=== PATIENT | female | born 1985 | race Caucasian/White ===

== ENCOUNTER 2017-02-15 08:32 | Emergency (ER) | payer BC ==
[2017-02-15 08:41] VITALS: BP 99/65
--- NOTE | 2017-02-15 09:09 | UC ---
Eunice Villeda SooYoung, scribed for [facility] CenterTheodore MD on 02/15/17 at 0847 . Respiratory Complaint HPI - HPI Summary HPI Summary: IN ROOM NOTE: A 31 y/o F presents to [facility] with c/o ongoing throat pain. Recent dx: mono last week. Pt has a PMHx mono 9 years ago. Pt states she is unable to sleep due to pain. Associated sx: frontal JOHNSON, ear pain, jaw pain, dental pain, mild cough, low-grade fever, nasal discharge. Denies: n/v/d. Pt is taking IBP. NOTE: Vital signs stable. Afebrile. Pulse ox 100. Non-smoker, occasional EToH. Hx: anxiety. Positive mono screening 02/10/2017. Negative influenza on 02/06/17. NURSE'S NOTE: last week pt was dx with mono. she presents today with c/o sinus pain and pressure and is sure she has a sinus infection. - History of Current Complaint Chief Complaint: UCRespiratory Stated Complaint: SINUS ISSUE Time Seen by Provider: 02/15/17 08:35 Hx Obtained From: Patient, Medical Records Hx Last Menstrual Period: 01/31/17 Onset/Duration: Lasting Days, Still Present Severity Initially: Moderate Severity Currently: Severe Pain Intensity: 9 Pain Scale Used: 0-10 Numeric Associated Signs And Symptoms: Positive: Fever - low-grade, Nasal Congestion, Sinus Discomfort - Allergies/Home Medications Allergies/Adverse Reactions: Allergies Allergy/AdvReac Type Severity Reaction Status Date / Time Amantadine Allergy See Comment Verified 02/15/17 08:41 Phenazopyridine Allergy See Comment Verified 02/15/17 08:41 [From Pyridium] Home Medications: Home Medications Escitalopram Oxalate [Lexapro] 20 mg PO 02/15/17 [History] Ferrous Sulfate [Fe Tabs] 325 mg PO 02/15/17 [History] PMH/Surg Hx/FS Hx/Imm Hx Previously Healthy: Yes Psychological History Of: Reports: Anxiety - Surgical History Surgical History: None - Family History Known Family History: Positive: Unknown - DUE TO ALZHEIMERS IN MOTHER, Hypertension - Social History Occupation: Employed Full-time Lives: With Family Alcohol Use: Occasionally Substance Use Type: None Smoking Status (MU): Never Smoked Tobacco Have You Smoked in the Last Year: No Review of Systems Constitutional: Fever ENT: Dental Pain - and jaw pain, Sore Throat, Ear Ache, Nasal Discharge Respiratory: Cough - and congestion Neurological: Headache All Other Systems Reviewed And Are Negative: Yes Physical Exam Triage Information Reviewed: Yes Appearance: Well-Appearing, Well-Nourished, Pain Distress - OBVIOUS DISTRESS DUE TO THROAT PAIN, CONGESTION Vital Signs: Initial Vital Signs Temp 97.9 F 02/15/17 08:38 Pulse 79 02/15/17 08:38 Resp 18 02/15/17 08:38 BP 99/65 02/15/17 08:38 Pulse Ox 100 02/15/17 08:38 Vital Signs Reviewed: Yes Eyes: Positive: Conjunctiva Clear ENT: Positive: Hearing grossly normal, Pharynx normal, TMs normal, Tonsillar swelling - POS: 2 ENLARGED TONSILS, NOT ERYTHEMATOUS. THROAT OPEN, TONSILS DO NOT TOUCH UVULA., Other: - POS: MILD TENDERNESS TO PALPATION OF MAXILLARY SINUSES. Negative: Muffled/hoarse voice Neck: Positive: Supple, Other: - POS: ANTERIOR ADENOPATHY Respiratory: Positive: Chest non-tender, Lungs clear, Normal breath sounds, No respiratory distress Cardiovascular: Positive: RRR, No Murmur Abdomen Description: Positive: Nontender, No Organomegaly, Soft Bowel Sounds: Positive: Present Musculoskeletal: Positive: Strength Intact, Other: - BURCH Neurological: Positive: Alert Psychological: Positive: Age Appropriate Behavior Skin: Negative: rashes UC Diagnostic Evaluation - Laboratory O2 Sat by Pulse Oximetry: 100 Respiratory Course/Dx - Course Course Of Treatment: Medications have been included in the original chart and reviewed. Normal BP reading and no follow-up instructions required. On respiratory exam, no respiratory distress, no difficulty swallowing saliva. Discussed with pt strategies for pain relief including warm fluids, steam, viscous lidocaine, APAP/IBP. - Differential Dx/Diagnosis Differential Diagnosis/HQI/PQRI: Other - MONO vs URI vs SINUSITIS Provider Diagnoses: 1. MONONUCLEOSIS. 2. SINUSITIS Discharge - Discharge Plan Condition: Stable Disposition: HOME Prescriptions: Amoxicillin (*) [Amoxicillin 875 MG (*)] 875 mg PO BID #14 tab Patient Education Materials: Mononucleosis (ED), Sinusitis (ED) Referrals: Ze La, ACETY[employer]E [employer]ORCH SOLDERER [Primary Care Provider] - Additional Instructions: WE DISCUSSED: You have: 1. mononucleosis 2. sinusitis: take amoxicillin, twice a day for 7 days. 3. also: PAIN MANAGEMENT Most pain can be brought down to a reasonable level with the following: Ibuprofen 400mg PLUS acetaminophen 1000mg, every 6 hours. Maximum is 4 doses a day. As well as: USEFUL WAYS TO FEEL BETTER WITHOUT MEDICATIONS: STAND UNDER SHOWER STREAM TO LOOSEN SECRETIONS. USE A VAPORIZOR. STAY AWAY FROM ANY SMOKE OR IRRITANTS. USE SALINE NASAL SPRAY TO KEEP FLOW OF MUCOUS FROM NOSTRILS AND SINUSES. CONSIDER USING NETI POT TO HELP WITH ALLERGIES AND CONGESTION IN THE NOSE. USE THIS THREE TIMES A WEEK. YOU CAN GET THIS AT [facility] IN [place] OR VARIOUS DRUGSTORES. DRINK LOTS OF WARM FLUIDS USEFUL HOME REMEDIES: WARM WATER GARGLES, WITH TSP OF SALT PER 8 OUNCES OF WATER, GARGLE FOR A FEW SECONDS AND SPIT OUT; GARGLE AND SPIT OUT; EVERY THREE HOURS. AND/OR: WARM WATER OR TEA, HONEY AND LEMON; 2-3 CUPS A DAY. FOR SORE THROAT: KEEP THROAT MOIST WITH LOZENGES; TEA AND HONEY. USE WARM WATER GARGLES 3-4 TIMES A DAY. FOLLOW UP: RE-CHECK IN 1O DAYS, NEEDED, IF YOU ARE NOT IMPROVING. RETURN HERE OR SEE YOUR PHYSICIAN. RE-CHECK SOONER IF INCREASED PAIN OR TEMPERATURE. The documentation as recorded by the Eunice hamilton SooYoung accurately reflects the service I personally performed and the decisions made by me, Theodore Espinoza MD.
== END 2017-02-15 09:23 | disposition home or self-care (01) ==
LOC: UCEAST 08:32
DX: B27.90 Infectious mononucleosis, unspecified without complication (principal); J32.9 Chronic sinusitis, unspecified; F41.9 Anxiety disorder, unspecified
CPT/HCPCS: 99212; G0463

== ENCOUNTER 2018-06-08 07:03 | Day surgery (SDC) | payer BC ==
--- NOTE | 2018-06-02 11:08 | HP ---
PREOPERATIVE HISTORY AND PHYSICAL: DATE OF SURGERY/ADMISSION: 06/08/18 [facility] DATE OF OFFICE VISIT/ENCOUNTER: 05/13/18 ATTENDING SURGEON: Nunu Bolaños MD * (DICTATED BY MEAGAN CINTRON) PROCEDURE: De Quervain's release, ganglion cyst excision, right wrist. CHIEF COMPLAINT: Right wrist pain. HISTORY OF PRESENT ILLNESS: This is a 32-year-old female who reports pain in her right wrist most recently. It has been ongoing for the past 3 to 4 months. She has a history of de Quervain's tenosynovitis that she first noticed towards the end of 2015 and ended up having a de Quervain's release performed by a doctor in [place] in June 2017. Unfortunately, she had some pain return that has persisted. She denies any injury to the wrist. She has failed conservative treatment including brace and physical therapy. MRI imaging shows evidence of tendinitis and also a ganglion cyst present in the area of the pain. She has consented to proceed with surgical intervention at this time. PAST MEDICAL HISTORY: 1. Anxiety/depression. 2. Anemia. 3. Allergies. PAST SURGICAL HISTORY: Right wrist de Quervain's release, June 2017. CURRENT MEDICATIONS: 1. Vitamin B12. 2. Vitamin D3. 3. Lexapro 20 mg daily. 4. Ferrous sulfate 325 mg daily. 5. Hydrocortisone 2.5%, apply 4 times per day p.r.n. 6. Hydroxyzine HCl 25 mg 1/2 to 1 tablet every 6 to 8 hours p.r.n. 7. Mirena 20 mcg/24 hours. 8. Olopatadine HCl 0.1% one drop in eyes twice a day. 9. QNASL 80 mcg/ACT, 2 sprays each nostril 1 time daily. ALLERGIES: Medication allergies: PYRIDIUM causes throat swelling and AMANTADINE causes confusion. FAMILY MEDICAL HISTORY: Osteoarthritis. 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 She denies tobacco use and recreational drug use. She does drink alcohol on occasion. REVIEW OF SYSTEMS: General: Negative for fevers, chills, night sweats, unexplained weight loss/gain. No known anesthesia problems. HEENT: Negative for headache, lightheadedness, syncopal episodes, or visual changes. Integumentary: Negative for abrasions, lesions, or open wounds. Cardiothoracic : Negative for hypertension, chest pain, palpitations, or edema. Respiratory: Negative for shortness of breath with exertion, chronic cough, or wheezing. GI: Negative for nausea, vomiting, diarrhea, constipation, or GERD. : Negative for nocturia, urinary frequency/urgency, history of UTIs, or kidney problems. Musculoskeletal: Positive for current complaint. Negative for chronic or intermittent back pain or history of fractures. Neurological: Negative for paresthesias, numbness, history of seizure, stroke, poor balance. Positive for anxiety/depression. Endocrine: Negative for diabetes and thyroid issues. Hematologic: Negative for easy bruising, anemia, bleeding disorders, history of DVT. Infectious Disease: Negative for history of MRSA, hepatitis C , or HIV. PHYSICAL EXAMINATION GENERAL: Well-developed, well-nourished 32-year-old female in no acute distress. VITAL SIGNS: Height 5 feet 5 inches, weight 111 pounds. Pulse rate 78, blood pressure 90/60. HEENT: Normocephalic, atraumatic. Pupils are equal, round, and reactive to light and accommodation. Extraocular movements are intact. Throat is clear. NECK: Supple. No palpable lymph nodes. PULMONARY: Lungs are clear to auscultation bilaterally. No wheezes, rales, or rhonchi. CARDIOVASCULAR: Regular rate and rhythm. S1, S2. No murmurs, rubs, or gallops. No edema. ABDOMEN: Positive bowel sounds. Soft, nontender. MUSCULOSKELETAL: On exam of her right wrist, she has a well-healed transverse incision at the first dorsal compartment. She has tenderness to palpation just under the surgical scar and also on the volar radial aspect of the wrist. She has a mildly positive Luis Miguel's test. Neurovascular function is intact. NEUROLOGIC: Alert and oriented x3. Cranial nerves II through XII are intact. Sensation is intact to light touch. IMAGING STUDIES: X-rays of the right wrist are unremarkable. MRI of the right wrist shows some inflammation around the tendons of the first dorsal compartment and a volar radial ganglion cyst. IMPRESSION: Persistent wrist pain after de Quervain's release and a right wrist ganglion cyst. PLAN: The patient is scheduled to undergo a de Quervain's release and a ganglion cyst excision of the right wrist with Dr. Bolaños on 06/08/18. She will return to the office 10 days postop for followup and suture removal. A prescription for Tylenol No. 3 was e-scribed to the patient's pharmacy for postoperative pain management. MEAGAN CINTRON [id number]/[facility] #: [id number] [place]
[~2018-06-08 07:03] MED LIST: Buffered Lidocaine 0.9% SYRIN* 5 ML/SYR SYRINGE INTRADERM ONE; Lidocaine 0.5%* 50 ML SDV ONE; Propofol* 10 MG/ML 20 ML BTL IV PUSH ONE
[2018-06-08] MEDS ORDERED: Lidocaine 1% INJ* 10 MG/ML 30 ML SDV ONE (07:11)
[2018-06-08] MEDS ORDERED: Acetaminophen TAB* 325 MG PO PRN (08:39)
[2018-06-08] MEDS ORDERED: Ibuprofen TAB* 600 MG PO PRN (08:39)
[2018-06-08] MEDS ORDERED: Naloxone* 0.4 MG/ML 1 ML VIAL IV PRN (08:39)
[2018-06-08] MEDS ORDERED: Ondansetron ODT TAB* 4 MG PO PRN (08:39)
[2018-06-08 09:12] VITALS: BP 92/53
--- NOTE | 2018-06-08 21:36 | OP ---
DATE OF OPERATION: 06/08/18 [facility] DATE OF : 83 SURGEON: Nunu Bolaños MD MANAGER STRATEGIC ALLIANCES: MEAGAN Valdez ANESTHESIA: Local MAC. PRE-OP DIAGNOSES: De Quervain's tenosynovitis and ganglion cyst of the right wrist. POST-OP DIAGNOSES: De Quervain's tenosynovitis and ganglion cyst of the right wrist. OPERATIVE PROCEDURE: Redo de Quervain' s release and ganglion cyst excision from the right wrist. ESTIMATED BLOOD LOSS: Zero. TOURNIQUET TIME: 25 minutes. INDICATIONS FOR PROCEDURE: Ines is a 32-year-old female who had a de Quervain 's release and initially got very good relief but now has recurrent symptoms and on MRI, she has a ganglion cyst at the volar radial aspect of her wrist, which is bothersome. She presents for redo de Quervain's release and ganglion cyst excision. DESCRIPTION OF PROCEDURE: The patient was brought to the operating room, was given a sedation anesthetic and a local infiltration of 10 cc of 1% plain lidocaine. On the radial aspect of her right wrist, the skin of her right hand and forearm was prepped and draped in usual sterile fashion. The hand and forearm were exsanguinated and the tourniquet elevated to 250 mmHg. The prior scar was incised transverse and carefully dissected through the subcutaneous tissue, branches of the radial sensory nerve were located and retracted by the assistant professor surgical technology, Shania Moreno. There was abundant scar tissue surrounding the first compartment tendons and this was thoroughly debrided. Next, the incision was extended volar and distal diagonally over the ganglion cyst. The radial artery was carefully dissected out and retracted by the assistant professor surgical technology, Shania Moreno, and then the ganglion cyst was removed with small portions of volar radial wrist capsule. The edges of the capsule were cauterized with Bovie. The mass was sent for pathology. The wound was irrigated and the skin edges were reapproximated with 4-0 nylon suture. The wound was dressed with Xeroform, 4x4, Webril, and an Fadi wrap. The patient tolerated the procedure well, was brought to the recovery room in good condition. [id number]/[facility] #: [id number] [facility]
== END 2018-06-08 09:34 | disposition home or self-care (01) ==
LOC: OREAST 07:03
PROVIDERS: ATTEND Orthopaedic Surgery
DX: M65.4 Radial styloid tenosynovitis [de Quervain] (principal); M67.431 Ganglion, right wrist; D64.9 Anemia, unspecified; F41.9 Anxiety disorder, unspecified
CPT/HCPCS: 81025; 88304; J2704

== ENCOUNTER 2018-06-19 15:42 | Emergency (ER) | payer BC ==
--- OUTSIDE RECORDS SUMMARY | 2018-06-19 16:06 | XMS REPORT ---
:1985 External Reference #:[id number] Author Organization Buddy Biswas M.D., [facility] Address [address] [place] [address] Phone [phone] Care Team Providers Name Role Phone Ze La NP Care Team Information Energy Conservation Engineer Unavailable Ze La NP Primary Care Physician Unavailable Payers Type Date Identification Numbers Payment Provider Subscriber Health Maintenance Effective: Policy Number: [employer] Ines Malhotra Organization (O) 11/02/2013 [id number] PayID: [id number] [address] [place] [address] Problems Date Description Provider Status Onset: 08/25/2014 Regular astigmatism Aravind Sanches O.D. Active Onset: 08/25/2014 Myopia Aravind Sanches O.D. Active Onset: 08/25/2014 Tear film insufficiency Aravind Sanches O.D. Active Family History Date Family Member(s) Problem(s) Comments General Age-Related Macular Degeneration mgm General Blindness General Cataract General Glasses General Glaucoma pgm General Arthritis General Diabetes General Thyroid Disease Father Cataract Father Glasses Father Diabetes Mother Glasses Social History Type Date Description Comments ETOH Use Occasionally consumes alcohol Smoking Patient has never smoked Allergies, Adverse Reactions, Alerts Date Description Reaction Status Severity Comments 08/25/2014 Pyridium active Medications Medication Date Status Form Strength Qnty SIG Indications Ordering Provider Olopatadine HCL 03/16 Active Solution 0.1% 5ml one drop twice a Caro, day both OD eyes Pataday 00 Active Solution 0.2% Unknown /0000 Lexapro 00 Active Tablets 20mg Unknown /0000 Mirena (52 MG) 00 Active IUD 20mcg/24H Unknown /0000 R Sulfamethoxazole/ Active Tablets 800-160mg Unknown Trimethoprim DS /0000 Desloratadine Active Tablets 5mg Take 1 Unknown /0000 Tablet By Mouth Every Morning Fluconazole Active Tablets 150mg Take 1 Unknown /0000 Tablet By Mouth Every 3 Days For 2 Doses Levocetirizine Active Tablets 5mg Take 1 Unknown Dihydrochloride /0000 Tablet By Mouth Every Day as Needed Acetaminophen-Cod Active Tablets 300-30mg Unknown eine #3 Tramadol Active Tablets 37.5-325m Unknown Hydrochloride/Fadi / g taminophen Qnasl Active Aerosol 80mcg/Act [place] 2 Unknown Sprays Into Each Nostril One Time Daily Levofloxacin Active Tablets 500mg Bessie, / Ze, STUD DRIVER Amoxicillin/Clavu Active Tablets 875-125mg Unknown lanate Potassium Anucort-HC Active Suppository 25mg Insert 1 Unknown Suppositor y Rectally Two Times Daily Gavilyte-C Active Solution 240gm Take By Unknown Rec Mouth as Directed Methylprednisolon Active TBPK 4mg Mert, e MD Oscar Prednisone Active Tablets 10mg Mert, MD Oscar Olopatadine HCL 03/31 Hx Solution 0.1% 5ml one drop H10.45 twice a Caro, - day both OD 03/16 Ortho Tri-Cyclen Hx Tablets 0.18/0.21 Unknown Lo 5/0.25 - mg-25 mcg 03/31 Tri-Previfem Hx Tablets 0.18/0.21 Unknown 5/0.25 - mg-35 mcg 03/31 Vital Signs Date Vital Result Comment 03/31/2017 Intraocular Pressure Right Eye 13 mmHg Intraocular Pressure Left Eye 13 mmHg 08/25/2014 Intraocular Pressure Right Eye 11 mmHg Intraocular Pressure Left Eye 11 mmHg Results Description No Information Procedures Date CPT Code Description Status 03/31/2017 32767 Eye Exam Est Intermediate Completed 08/25/2014 34548 Refraction Completed 08/25/2014 82947 Eye Exam New Comprehensive Completed Plan of Care No Information Available
--- OUTSIDE RECORDS SUMMARY | 2018-06-19 16:06 | XMS REPORT ---
:1985 External Reference #:[id number] Author Organization [employer] Address [address] [place] [address] [place] [address] Phone [phone] Care Team Providers Name Role Phone Moriah Olivas MD Primary Care Physician Unavailable Payers Type Date Identification Numbers Payment Provider Subscriber Commercial Policy Number: [id number] [facility] Gee Malhotra PayID: [id number] [address] [place] [address] Advance Directives Type Date Description Status Comment Other Directive 11/28/2017 Health Care Proxy Current and Verified Other Directive 07/19/2017 Health Care Proxy Current and Verified Problems Date Description Provider Status Onset: 10/11/2015 Anxiety Ze La NP Active Family History Date Family Member(s) Problem(s) Comments General Arthritis, Osteo General Osteoarthritis General Arthritis Father Diabetes Type II Father Hypercholesterolemia 66 Mother Alzheimer's Disease Mother Obesity 63 Social History Type Date Description Comments Marital Status Single 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 hours as needed for pain Olopatadine HCL 04/19 Active Solution 0.1% 5ml 1 drop in eyes twice Varn, N.P. a day B12 Fast 02/03 Active Tablets 5000mcg 90tab sublingual Kirit Dispers s daily Jen Sahu D3 Maximum 12/29 Active Capsules 5000Unit 90cap take one s capsule/ta cecilia Sahu daily M.D. by mouth Ferrous Sulfate 10/19 Active Tablets 325(65Fe) take 1 mg tablet once daily. Hydroxyzine HCL 05/12 Active Tablets 25mg 15tab 11/03-1 F41.9 Ze s tablets by NITIN La mouth every 6-8 hours as needed Hydrocortisone 02/18 Active Cream 2.5% 45gm apply 4 K64.9 Erin /2016 times per , day as M.D. needed. Escitalopram 12/07 Active Tablets 20mg 30tab 1 by mouth F41.9 Ze Oxalate s every day NITIN La Mirena Active IUD 20mcg/24H R Qnasl Active Aerosol 80mcg/Act [place] 2 Sprays Into Each Nostril One Time Daily Levofloxacin 01/11 Hx Tablets 500mg 7tabs one by J01.90 Ze mouth NITIN La - daily for 01/18 Fluconazole 11/12 Hx Tablets 150mg 2tabs one by B37.3 mouth Varn, N.P. - every 3 04/25 days for doses Fluconazole 05/12 Hx Tablets 150mg 2tabs one by B37.3 Ze mouth NITIN La - every 3 08/25 days for doses Ferrous Sulfate 02/10 Hx Tablets 325(65Fe) 30tab take 1 Ze /2016 mg s tablet NITIN La - once 08/25 daily. Penicillin V 02/06 Hx Tablets 500mg 20tab 1 tablet Ze Potassium s by mouth NITIN La - twice a 02/16 day for days Amoxicillin/Cla 11/19 Hx Tablets 875-125mg 20tab take one J06.9 Ze vulanate s tablet q12 NITIN La Potassium - hours for 11/27 Fluticasone 07/22 Hx Suspension 50mcg/Act 16uni 2 sprays J01.00 Alba Propionate ts each Varn, N.P. - nostril 08/05 daily as needed Augmentin 07/22 Hx Tablets 875-125mg 20tab one by J01.00 Alba s mouth Varn, N.P. - every 12 11/19 hours for ten days Fluconazole 07/22 Hx Tablets 150mg 3tabs one by J01.00 Alba /2016 mouth Varn, N.P. - every 3 02/05 days for doses Fluconazole 05/06 Hx Tablets 150mg 2tabs one by Ze mouth march NITIN La - repeat in 05/08 3 days as needed Anucort-HC 02/18 Hx Suppository 25mg [address] K64.9 ts of rectum Cote, - every 8 M.D. 20 hours as needed. Anucort-HC 02/18 Hx Suppository 25mg [address]uni [address] Luis Fernando64.9 ts of rectum Rocael, - every 8 M.D. 20 hours as needed. Fluconazole 02/14 Hx Tablets 150mg 2tabs one by B37.3 Ze mouth march NITIN La - repeat in 02/18 3 days as needed Diflucan 11/06 Hx Tablets 150mg 2tabs 1 tab by Alex mouth x's NITIN Pham - 1, march 02 repeat 3 days Fluticasone 10/19 Hx Suspension 50mcg/Act 16uni 2 sprays H92.01 Ze Propionate ts each NITIN La - nostril 07/22 qd. Pataday 10/11 Hx Solution 0.2% 2.500 1 drop Ze /2014 ml into each NITIN La - affected 04/19 eye once daily Ciprofloxacin 09/18 Hx Tablets 250mg 14tab take one N39.0 Ze HCL s tablet NITIN La - twice a 09/25 day for days. Hydroxyzine 08/23 Hx Capsules 25mg 30cap 1-2 caps F41.9 Ze Pamoate s by mouth NITIN La - four times 05/12 a day needed for anxiety Escitalopram 08/23 Hx Tablets 10mg 30tab 2 tablets F41.9 Ze s daily NITIN La - 12/07 Cetirizine HCL 00 Hx Tablets 10mg 2 by mouth Unknown /0000 every day - 04/19 Medications Administered in Office Medication Date Status Form Strength Qnty SIG Indications Ordering Provider PPD Administered Injection Nurse Visit 6 A Immunizations CPT Code Status Date Vaccine Lot # [id number] Given 11/09/2017 Tdap - Tetanus/Diptheria/Acellular Pertussis [id number] Given 08/25/2017 Influenza Virus Vaccine, Quadrivalent, Split, [id number] Preservative Free Vital Signs Date Vital Result Comment 06/17/2018 Height 65 inches 5'5" Weight 113.00 lb Heart Rate 60 /min BP Systolic Sitting 116 mmHg BP Diastolic Sitting 60 mmHg Body Temperature 98.5 F Pain Level 2 BMI (Body Mass Index) 18.8 kg/m2 05/13/2018 Heart Rate 78 /min BP Systolic 90 mmHg BP Diastolic 60 mmHg Respiratory Rate 16 /min Body Temperature 97.6 F Pain Level 4 04/19/2018 Weight 111.00 lb Heart Rate 77 /min BP Systolic 100 mmHg BP Diastolic 60 mmHg Body Temperature 99.0 F O2 % BldC Oximetry 98 % 04/07/2018 Height 65 inches 5'5" Weight 112.00 lb Heart Rate 70 /min BP Systolic 110 mmHg BP Diastolic 68 mmHg Respiratory Rate 12 /min Body Temperature 96.8 F Pain Level 5 BMI (Body Mass Index) 18.6 kg/m2 03/17/2018 Height 65 inches 5'5" Weight 110.00 lb BP Systolic 110 mmHg BP Diastolic 62 mmHg Respiratory Rate 15 /min Body Temperature 96.7 F Pain Level 4 BMI (Body Mass Index) 18.3 kg/m2 02/03/2018 Height 65 inches 5'5" Weight 109.00 lb Heart Rate 80 /min BP Systolic Sitting 100 mmHg BP Diastolic Sitting 70 mmHg Respiratory Rate 14 /min Pain Level 3 BMI (Body Mass Index) 18.1 kg/m2 01/11/2018 Weight 111.75 lb Heart Rate 79 /min BP Systolic 96 mmHg BP Diastolic 62 mmHg Body Temperature 97.7 F O2 % BldC Oximetry 99 % 12/21/2017 Height 65 inches 5'5" Weight 108.25 lb Heart Rate 80 /min BP Systolic Sitting 110 mmHg BP Diastolic Sitting 72 mmHg Respiratory Rate 14 /min Pain Level 5 BMI (Body Mass Index) 18.0 kg/m2 11/09/2017 Height 65 inches 5'5" Weight 110.38 lb Heart Rate 70 /min BP Systolic Sitting 92 mmHg BP Diastolic Sitting 60 mmHg Respiratory Rate 14 /min Body Temperature 96.9 F BMI (Body Mass Index) 18.4 kg/m2 10/08/2017 Height 65 inches 5'5" Weight 114.12 lb Heart Rate 84 /min BP Systolic Sitting 100 mmHg BP Diastolic Sitting 66 mmHg Respiratory Rate 14 /min Body Temperature 97.9 F BMI (Body Mass Index) 19.0 kg/m2 10/05/2017 Height 65 inches 5'5" Weight 114.00 lb Heart Rate 85 /min BP Systolic Sitting 102 mmHg BP Diastolic Sitting 76 mmHg Body Temperature 97.5 F O2 % BldC Oximetry 98 % BMI (Body Mass Index) 19.0 kg/m2 08/25/2017 Weight 115.00 lb Heart Rate 84 /min BP Systolic Sitting 108 mmHg BP Diastolic Sitting 70 mmHg Body Temperature 97.9 F O2 % BldC Oximetry 97 % 07/31/2017 Weight 112.75 lb Heart Rate 93 /min BP Systolic 112 mmHg BP Diastolic 74 mmHg Body Temperature 98.4 F O2 % BldC Oximetry 97 % 07/17/2017 Height 65 inches 5'5" Weight 112.00 lb Heart Rate 76 /min BP Systolic 90 mmHg BP Diastolic 40 mmHg Body Temperature 98.5 F O2 % BldC Oximetry 99 % BMI (Body Mass Index) 18.6 kg/m2 05/12/2017 Weight 111.00 lb Heart Rate 76 /min BP Systolic Sitting 114 mmHg BP Diastolic Sitting 76 mmHg O2 % BldC Oximetry 98 % 04/09/2017 Weight 110.00 lb Heart Rate 89 /min BP Systolic Sitting 108 mmHg BP Diastolic Sitting 72 mmHg Body Temperature 98.5 F O2 % BldC Oximetry 98 % 02/25/2017 Weight 108.50 lb Heart Rate 87 /min BP Systolic 102 mmHg BP Diastolic 64 mmHg Body Temperature 98.2 F O2 % BldC Oximetry 98 % 02/05/2017 Height 65 inches 5'5" Weight 109.00 lb Heart Rate 100 /min BP Systolic Sitting 100 mmHg BP Diastolic Sitting 70 mmHg Respiratory Rate 16 /min Body Temperature 98.6 F O2 % BldC Oximetry 99 % BMI (Body Mass Index) 18.1 kg/m2 11/19/2016 Weight 115.00 lb with boots Heart Rate 88 /min BP Systolic Sitting 108 mmHg BP Diastolic Sitting 80 mmHg Body Temperature 97.3 F O2 % BldC Oximetry 99 % 07/22/2016 Height 64.5 inches 5'4.50" Weight 115.00 lb Heart Rate 82 /min BP Systolic 97 mmHg BP Diastolic 65 mmHg Body Temperature 98.6 F O2 % BldC Oximetry 97 % BMI (Body Mass Index) 19.4 kg/m2 02/19/2016 Weight 115.00 lb Heart Rate 88 /min BP Systolic Sitting 112 mmHg BP Diastolic Sitting 68 mmHg O2 % BldC Oximetry 97 % 02/15/2016 Weight 115.00 lb Heart Rate 78 /min BP Systolic Sitting 122 mmHg BP Diastolic Sitting 70 mmHg Respiratory Rate 15 /min Body Temperature 97.6 F O2 % BldC Oximetry 98 % 12/07/2015 Weight 118.25 lb Heart Rate 79 /min BP Systolic Sitting 113 mmHg BP Diastolic Sitting 71 mmHg Body Temperature 98.9 F O2 % BldC Oximetry 99 % 11/05/2015 Height 64.5 inches 5'4.50" Weight 122.25 lb Heart Rate 93 /min BP Systolic Sitting 106 mmHg BP Diastolic Sitting 62 mmHg Body Temperature 96.4 F O2 % BldC Oximetry 99 % BMI (Body Mass Index) 20.7 kg/m2 10/19/2015 Weight 122.25 lb Heart Rate 77 /min BP Systolic Sitting 105 mmHg BP Diastolic Sitting 69 mmHg Body Temperature 97.5 F O2 % BldC Oximetry 99 % 09/18/2015 Weight 123.50 lb Heart Rate 74 /min BP Systolic Sitting 107 mmHg BP Diastolic Sitting 65 mmHg Body Temperature 97.9 F O2 % BldC Oximetry 98 % 08/23/2015 Height 64.5 inches 5'4.50" Weight 124.00 lb Heart Rate 70 /min BP Systolic Sitting 100 mmHg BP Diastolic Sitting 60 mmHg Respiratory Rate 13 /min Body Temperature 98.0 F O2 % BldC Oximetry 98 % BMI (Body Mass Index) 21.0 kg/m2 Results Test Date Test Result H/L Range Note Laboratory test 06/08/2018 Surgical Pathology SEE RESULT BELOW 1, 2 finding CBC Auto Diff 12/21/2017 White Blood Count 4.8 10^3/uL 3.5-10.8 Red Blood Count 4.24 10^6/uL 4.0-5.4 Hemoglobin 12.8 g/dL 12.0-16.0 Hematocrit 38 % 35-47 Mean Corpuscular Volume 89 fL 80-97 Mean Corpuscular Hemoglobin 30 pg 27-31 Mean Corpuscular HGB Conc 34 g/dL 31-36 Red Cell Distribution Width 14 % 10.5-15 Platelet Count 236 10^3/uL 150-450 Mean Platelet Volume 9 um3 7.4-10.4 Abs Neutrophils 2.4 10^3/uL 1.5-7.7 Abs Lymphocytes 1.8 10^3/uL 1.0-4.8 Abs Monocytes 0.3 10^3/uL 0-0.8 Abs Eosinophils 0.2 10^3/uL 0-0.6 Abs Basophils 0 10^3/uL 0-0.2 Abs Nucleated RBC 0 10^3/uL Granulocyte % 50.0 % 38-83 Lymphocyte % 37.9 % 25-47 Monocyte % 7.2 % 1-9 Eosinophil % 4.3 % 0-6 Basophil % 0.6 % 0-2 Nucleated Red Blood Cells % 0.1 Hepatitis Acute Panel 12/21/2017 Hepatitis C Antibody Nonreactive Nonreactive 3 Hepatitis A AB Igm Nonreactive Nonreactive 4 Hepatitis B Core AB Igm Nonreactive Nonreactive 5 Hepatitis B Surface Ag Nonreactive Nonreactive 6 Laboratory test finding 12/21/2017 Erythrocyte Sed Rate 11 mm/Hr 0-14 7 C Reactive Protein < 1.00 mg/L < 5.00 8 Thyroperoxidase AB 0.53 IU/mL <9 9 Ach Receptor Binding AB 0.00 nmol/L <=0.02 10 Aldolase 4.2 U/L <7.7 11 Anca AB Ser If 12/21/2017 C-Anca Negative Negative P-Anca Negative Negative 12 Laboratory test finding 12/21/2017 Creatine Kinase(CK) 71 U/L 10-223 13 Cardiolipin Igg/Igm 12/21/2017 Phospholipid Ab IgM, S 39.5 MPL High 14 Phospholipid Ab IgG < 9.4 GPL 15 Laboratory test finding 12/21/2017 Complement C3 88 mg/dL 75 - 175 16 Complement C4 16 mg/dL 14 - 40 17 Anti Double Stranded Dna AB <12.3 IU/mL 18 Vitamin D 1,25 And Vitamin 12/21/2017 Vitamin D Total 25(Oh) 19.4 ng/mL Low 20-50 19 D,2 Vitamin D, 1,25 Dihydroxy 99 pg/mL 18-78 20 Vitamin B12 And Folate Serum 12/21/2017 Vitamin B12 335 pg/mL 180-914 21 Folic Acid (Folate) 15.65 ng/mL >3.99 22 Laboratory test finding 12/21/2017 Angiotensin Converting Enzyme 22 U/L 8 - 53 23 Devi Igg AB Reflex 12/21/2017 SS-A/Ro Antibody <0.2 U 24 SS-B/La Antibody <0.2 U 25 Sm ([place]) IgG Antibody <0.2 U 26 U1-nRNP Antibody <0.2 U 27 Scl-70 (Scleroderma) Antibody <0.2 U 28 Belia-1 Antibody <0.2 U 29 Laboratory test finding 12/16/2017 Surgical Pathology SEE RESULT BELOW 30, 31 Nuclear AB (Darian) By Ifa 11/19/2017 Nuclear Ab (Darian) by Positive 1:160 32 Igg Ifa, IgG Darian Titer: 1:160 Darian Pattern: Dense Fine Speck <SEE NOTE> 33 Laboratory test finding 10/09/2017 Cyclospora Stain See Comment 34 Stool Culture SEE RESULT BELOW 35 Krish Knowles Comprehensive 10/08/2017 Ebv Capsid Ag IgG Ab Positive Negative Ebv Capsid Ag IgM Ab Negative Negative Krish-Knowles Nuclear Antigen Positive Negative Krish-Knowles Virus Interp See Comment 36 CMV Igg/Igm 10/08/2017 Cytomegalovirus IgG Antibody Negative Negative 37 Cytomegalovirus IgM Antibody Negative Negative Laboratory test finding 10/08/2017 C Reactive Protein < 1.00 mg/L < 5.00 38 Miscellaneous Test See Comment 39 Celiac Panel 10/08/2017 Tissue Transglutaminase IgA Ab <1.2 U/mL 40 Immunoglobulin A 210 mg/dL 61 - 356 Celiac Interpretation See Comment 41 Laboratory test finding 10/08/2017 Ferritin 16.5 ng/mL 11-307 TSH (Thyroid Stim Horm) 0.91 mcIU/mL 0.34-5.60 Cortisol 3.48 g/dL 42 Iron & Iron Binding 10/08/2017 Total Iron Binding 337 g/dL 250-450 Capacity Capacity Iron 138 g/dL 50-212 Unsaturated Iron Binding 199 g/dL % Iron Saturation 41 % 15-55 Tick-Borne Panel PCR Blood 10/08/2017 Babesia microti PCR Negative Negative Babesia ducani Negative Negative Babesia divergens/Mo-1 Negative Negative 43 Anaplasma phagocytophilum Negative Negative Ehrlichia chaffeensis Negative Negative Ehrlichia ewingii/canis Negative Negative Ehrlichia muris-like Negative Negative 44 B. miyamotoi PCR, B Negative Negative 45 Laboratory test finding 10/08/2017 Rheumatoid Factor <15 IU/mL <15 46 Lyme Disease Serology Negative Negative 47 Connective Tissue Panel 10/08/2017 Anti-Nuclear Antibody 1.1 U High 48 Cyclic Citrullinated Peptide <15.6 U 49 Interpretation See Comment 50 Laboratory test finding 10/08/2017 Erythrocyte Sed Rate 10 mm/Hr 0-14 C Reactive Protein < 1.00 mg/L < 5.00 51 Comp Metabolic Panel 10/08/2017 Blood Urea Nitrogen 11 mg/dL 6-24 Total Bilirubin 1.00 mg/dL 0.2-1.0 Sodium 134 mmol/L 133-145 Potassium 4.2 mmol/L 3.5-5.0 Chloride 102 mmol/L 101-111 Co2 Carbon Dioxide 28 mmol/L 22-32 Anion Gap 4 mmol/L 2-11 Glucose 94 mg/dL 70-100 Creatinine 0.56 mg/dL 0.51-0.95 BUN/Creatinine Ratio 19.6 8-20 Calcium 8.8 mg/dL 8.6-10.3 Total Protein 6.5 g/dL 6.4-8.9 Albumin 4.1 g/dL 3.2-5.2 Globulin 2.4 g/dL 2-4 Albumin/Globulin Ratio 1.7 1-3 Alkaline Phosphatase 45 U/L 34-104 Alt 8 U/L 7-52 Ast 14 U/L 13-39 Egfr Non- 125.5 >60 Egfr 161.3 >60 52 CBC Auto Diff 10/08/2017 White Blood Count 4.8 10^3/uL 3.5-10.8 Red Blood Count 4.11 10^6/uL 4.0-5.4 Hemoglobin 11.9 g/dL Low 12.0-16.0 Hematocrit 36 % 35-47 Mean Corpuscular Volume 88 fL 80-97 Mean Corpuscular Hemoglobin 29 pg 27-31 Mean Corpuscular HGB Conc 33 g/dL 31-36 Red Cell Distribution Width 13 % 10.5-15 Platelet Count 211 10^3/uL 150-450 Mean Platelet Volume 8 um3 7.4-10.4 Abs Neutrophils 2.1 10^3/uL 1.5-7.7 Abs Lymphocytes 2.1 10^3/uL 1.0-4.8 Abs Monocytes 0.4 10^3/uL 0-0.8 Abs Eosinophils 0.2 10^3/uL 0-0.6 Abs Basophils 0 10^3/uL 0-0.2 Abs Nucleated RBC 0 10^3/uL Granulocyte % 43.9 % 38-83 Lymphocyte % 43.1 % 25-47 Monocyte % 8.1 % 1-9 Eosinophil % 4.3 % 0-6 Basophil % 0.6 % 0-2 Nucleated Red Blood Cells % 0 Laboratory test finding 10/08/2017 Creatine Kinase(CK) 69 U/L 10-223 Laboratory test finding 07/18/2017 C Reactive Protein < 1.00 mg/L < 5.00 53 Erythrocyte Sed Rate 9 mm/Hr 0-14 CBC Auto Diff 07/18/2017 White Blood Count 4.5 10^3/uL 3.5-10.8 Red Blood Count 3.96 10^6/uL Low 4.0-5.4 Hemoglobin 11.5 g/dL Low 12.0-16.0 Hematocrit 35 % 35-47 Mean Corpuscular Volume 88 fL 80-97 Mean Corpuscular Hemoglobin 29 pg 27-31 Mean Corpuscular HGB Conc 33 g/dL 31-36 Red Cell Distribution Width 14 % 10.5-15 Platelet Count 239 10^3/uL 150-450 Mean Platelet Volume 9 um3 7.4-10.4 Abs Neutrophils 1.7 10^3/uL 1.5-7.7 Abs Lymphocytes 2.0 10^3/uL 1.0-4.8 Abs Monocytes 0.3 10^3/uL 0-0.8 Abs Eosinophils 0.4 10^3/uL 0-0.6 Abs Basophils 0.1 10^3/uL 0-0.2 Abs Nucleated RBC 0.01 10^3/uL Granulocyte % 38.8 % 38-83 Lymphocyte % 43.9 % 25-47 Monocyte % 7.7 % 1-9 Eosinophil % 8.5 % High 0-6 Basophil % 1.1 % 0-2 Nucleated Red Blood Cells % 0.1 Comp Metabolic Panel 07/18/2017 Sodium 140 mmol/L 133-145 Potassium 4.2 mmol/L 3.5-5.0 Chloride 106 mmol/L 101-111 Co2 Carbon Dioxide 28 mmol/L 22-32 Anion Gap 6 mmol/L 2-11 Glucose 87 mg/dL 70-100 Blood Urea Nitrogen 9 mg/dL 6-24 Creatinine 0.68 mg/dL 0.51-0.95 BUN/Creatinine Ratio 13.2 8-20 Calcium 9.1 mg/dL 8.6-10.3 Total Protein 6.6 g/dL 6.4-8.9 Albumin 4.2 g/dL 3.2-5.2 Globulin 2.4 g/dL 2-4 Albumin/Globulin Ratio 1.8 1-3 Total Bilirubin 0.70 mg/dL 0.2-1.0 Alkaline Phosphatase 39 U/L 34-104 Alt 7 U/L 7-52 Ast 13 U/L 13-39 Egfr Non- 100.3 >60 Egfr 129.0 >60 54 CBC Auto Diff 05/12/2017 White Blood Count 6.1 10^3/uL 3.5-10.8 Red Blood Count 4.13 10^6/uL 4.0-5.4 Hemoglobin 12.4 g/dL 12.0-16.0 Hematocrit 37 % 35-47 Mean Corpuscular Volume 90 fL 80-97 Mean Corpuscular Hemoglobin 30 pg 27-31 Mean Corpuscular HGB Conc 33 g/dL 31-36 Red Cell Distribution Width 14 % 10.5-15 Platelet Count 203 10^3/uL 150-450 Mean Platelet Volume 9 um3 7.4-10.4 Abs Neutrophils 3.0 10^3/uL 1.5-7.7 Abs Lymphocytes 1.9 10^3/uL 1.0-4.8 Abs Monocytes 0.5 10^3/uL 0-0.8 Abs Eosinophils 0.7 10^3/uL High 0-0.6 Abs Basophils 0 10^3/uL 0-0.2 Abs Nucleated RBC 0 10^3/uL Granulocyte % 49.1 % 38-83 Lymphocyte % 31.0 % 25-47 Monocyte % 7.9 % 1-9 Eosinophil % 11.6 % High 0-6 Basophil % 0.4 % 0-2 Nucleated Red Blood Cells % 0 Comp Metabolic Panel 05/12/2017 Sodium 138 mmol/L 133-145 Potassium 4.0 mmol/L 3.5-5.0 Chloride 106 mmol/L 101-111 Co2 Carbon Dioxide 28 mmol/L 22-32 Anion Gap 4 mmol/L 2-11 Glucose 66 mg/dL Low 70-100 Blood Urea Nitrogen 11 mg/dL 6-24 Creatinine 0.57 mg/dL 0.51-0.95 BUN/Creatinine Ratio 19.3 8-20 Calcium 8.9 mg/dL 8.6-10.3 Total Protein 6.9 g/dL 6.4-8.9 Albumin 4.3 g/dL 3.2-5.2 Globulin 2.6 g/dL 2-4 Albumin/Globulin Ratio 1.7 1-3 Total Bilirubin 0.90 mg/dL 0.2-1.0 Alkaline Phosphatase 41 U/L 34-104 Alt 9 U/L 7-52 Ast 16 U/L 13-39 Egfr Non- 122.9 >60 Egfr 158.1 >60 55 Laboratory test finding 05/12/2017 TSH (Thyroid Stim Horm) 0.91 mcIU/mL 0.34-5.60 Lyme Disease Serology Negative Negative 56 Urinalysis Profile 02/17/2017 Urine Color Straw Urine Appearance Clear Urine Specific [place] 1.006 Low 1.010-1.030 Urine pH 7.0 5-9 Urine Urobilinogen Negative Negative Urine Ketones Negative Negative Urine Protein Negative Negative Urine Leukocytes Negative Negative Urine Blood Negative Negative Urine Nitrite Negative Negative Urine Bilirubin Negative Negative Urine Glucose Negative Negative Comp Metabolic Panel 02/17/2017 Sodium 136 mmol/L 133-145 Potassium 4.0 mmol/L 3.5-5.0 Chloride 104 mmol/L 101-111 Co2 Carbon Dioxide 24 mmol/L 22-32 Anion Gap 8 mmol/L 2-11 Glucose 86 mg/dL 70-100 Blood Urea Nitrogen 8 mg/dL 6-24 Creatinine 0.64 mg/dL 0.51-0.95 BUN/Creatinine Ratio 12.5 8-20 Calcium 9.5 mg/dL 8.6-10.3 Total Protein 7.6 g/dL 6.4-8.9 Albumin 4.2 g/dL 3.2-5.2 Globulin 3.4 g/dL 2-4 Albumin/Globulin Ratio 1.2 1-3 Total Bilirubin 0.50 mg/dL 0.2-1.0 Alkaline Phosphatase 40 U/L 34-104 Alt 7 U/L 7-52 Ast 11 U/L Low 13-39 Egfr Non- 107.5 >60 Egfr 138.3 >60 57 Laboratory test finding 02/17/2017 Lipase < 10 U/L Low 11.0-82.0 C Reactive Protein 55.13 mg/L High < 5.00 58 HCG < 0.60 mIU/mL 59 CBC Auto Diff 02/17/2017 White Blood Count 10.5 10^3/uL 3.5-10.8 Red Blood Count 4.17 10^6/uL 4.0-5.4 Hemoglobin 12.2 g/dL 12.0-16.0 Hematocrit 37 % 35-47 Mean Corpuscular Volume 88 fL 80-97 Mean Corpuscular Hemoglobin 29 pg 27-31 Mean Corpuscular HGB Conc 33 g/dL 31-36 Red Cell Distribution Width 13 % 10.5-15 Platelet Count 240 10^3/uL 150-450 Mean Platelet Volume 8 um3 7.4-10.4 Abs Neutrophils 7.5 10^3/uL 1.5-7.7 Abs Lymphocytes 1.9 10^3/uL 1.0-4.8 Abs Monocytes 0.7 10^3/uL 0-0.8 Abs Eosinophils 0.2 10^3/uL 0-0.6 Abs Basophils 0 10^3/uL 0-0.2 Abs Nucleated RBC 0 10^3/uL Granulocyte % 71.8 % 38-83 Lymphocyte % 18.5 % Low 25-47 Monocyte % 7.0 % 1-9 Eosinophil % 2.2 % 0-6 Basophil % 0.5 % 0-2 Nucleated Red Blood Cells % 0 Laboratory test finding 02/17/2017 Lactic Acid 0.7 mmol/L 0.5-2.0 60 Inr/Protime 02/17/2017 Inr 1.04 0.89-1.11 Laboratory test finding 02/17/2017 Partial Thrombo Time 32.8 seconds 26.0 -36.3 PTT Laboratory test finding 02/10/2017 Monospot Positive Negative 61 Rapid Influenza A & B 02/06/2017 Influenza A Molecular NEGATIVE Negative 62 Molecular Influenza B Molecular NEGATIVE Negative Laboratory test 02/06/2017 Influenza A & B SEE RESULT BELOW 63 finding Request Laboratory test 02/06/2017 Culture Throat SEE RESULT BELOW 64 finding Laboratory test 02/06/2017 Rapid Group A Strep neg finding Laboratory test 02/05/2017 TSH (Thyroid Stim 0.76 mcIU/mL 0.34-5.60 finding Horm) CBC Auto Diff 02/05/2017 White Blood Count 10.2 10^3/uL 3.5-10.8 Red Blood Count 4.02 10^6/uL 4.0-5.4 Hemoglobin 11.8 g/dL Low 12.0-16.0 Hematocrit 36 % 35-47 Mean Corpuscular Volume 89 fL 80-97 Mean Corpuscular Hemoglobin 30 pg 27-31 Mean Corpuscular HGB Conc 33 g/dL 31-36 Red Cell Distribution Width 14 % 10.5-15 Platelet Count 184 10^3/uL 150-450 Mean Platelet Volume 8 um3 7.4-10.4 Abs Neutrophils 8.0 10^3/uL High 1.5-7.7 Abs Lymphocytes 1.1 10^3/uL 1.0-4.8 Abs Monocytes 0.7 10^3/uL 0-0.8 Abs Eosinophils 0.3 10^3/uL 0-0.6 Abs Basophils 0 10^3/uL 0-0.2 Abs Nucleated RBC 0 10^3/uL Granulocyte % 78.4 % 38-83 Lymphocyte % 11.0 % Low 25-47 Monocyte % 6.9 % 1-9 Eosinophil % 3.4 % 0-6 Basophil % 0.3 % 0-2 Nucleated Red Blood Cells % 0 Comp Metabolic Panel 02/05/2017 Sodium 137 mmol/L 133-145 Potassium 4.1 mmol/L 3.5-5.0 Chloride 104 mmol/L 101-111 Co2 Carbon Dioxide 27 mmol/L 22-32 Anion Gap 6 mmol/L 2-11 Glucose 82 mg/dL 70-100 Blood Urea Nitrogen 9 mg/dL 6-24 Creatinine 0.55 mg/dL 0.51-0.95 BUN/Creatinine Ratio 16.4 8-20 Calcium 8.9 mg/dL 8.6-10.3 Total Protein 6.5 g/dL 6.4-8.9 Albumin 4.3 g/dL 3.2-5.2 Globulin 2.2 g/dL 2-4 Albumin/Globulin Ratio 2.0 1-3 Total Bilirubin 1.30 mg/dL High 0.2-1.0 Alkaline Phosphatase 40 U/L 34-104 Alt 9 U/L 7-52 Ast 15 U/L 13-39 Egfr Non- 128.1 >60 Egfr 164.7 >60 65 Laboratory test finding 02/05/2017 Erythrocyte Sed Rate 7 mm/Hr 0-14 C Reactive Protein 2.45 mg/L < 5.00 66 Protein Electrophoresis 02/05/2017 Total Protein(Pep) 6.9 g/dL 6.3 - 7.9 Albumin 3.9 g/dL 3.4-4.7 Alpha-1 Globulin 0.2 g/dL 0.1-0.3 Alpha-2 Globulin 0.8 g/dL 0.6-1.0 Beta Globulin 0.8 g/dL 0.7-1.2 Gamma Globulin 1.2 g/dL 0.6-1.6 Albumin/Globulin Ratio 1.27 Impression See Comment 67 Laboratory test finding 02/05/2017 LDH 121 U/L Low 140-271 HIV 1&2 AB Self Referred Nonreactive Nonreactive 68 Urinalysis Profile 02/05/2017 Urine Color Yellow Urine Appearance Clear Urine Specific [place] 1.016 1.010-1.030 Urine pH 7.0 5-9 Urine Urobilinogen Negative Negative Urine Ketones Negative Negative Urine Protein Negative Negative Urine Leukocytes Negative Negative Urine Blood 1+ Negative Urine Nitrite Negative Negative Urine Bilirubin Negative Negative Urine Glucose Negative Negative Urine White Blood Cell Absent Absent Urine Red Blood Cell 2+(6-10/hpf) Absent Urine Bacteria Absent Absent Urine Squamous Epithelial Cell Present Absent Quantiferon Gold TB 02/05/2017 M tuberculosis by Quantiferon Negative Negative 69 TB Ag minus Nil Result 0 IU/mL TB Mitogen minus Nil Result > 10.00 IU/mL TB Nil Result 0.04 IU/mL 70 Iron & Iron Binding Capacity 02/05/2017 Iron 52 g/dL 50-212 Unsaturated Iron Binding 271 g/dL Total Iron Binding Capacity 323 g/dL 250-450 % Iron Saturation 16 % 15-55 Laboratory test finding 02/05/2017 Ferritin 18.3 ng/mL 11-307 Folic Acid (Folate) > 20.00 ng/mL >3.99 Vitamin B12 414 pg/mL 180-914 71 Urinalysis Profile 03/14/2016 Urine Color Yellow Urine Appearance Turbid Urine Specific [place] 1.015 1.010-1.030 Urine pH 8.0 5-9 Urine Urobilinogen Negative Negative Urine Ketones Negative Negative Urine Protein Negative Negative Urine Leukocytes Negative Negative Urine Blood Negative Negative Urine Nitrite Negative Negative Urine Bilirubin Negative Negative Urine Glucose Negative Negative Ua Routine 02/15/2016 Ua Specific [place] 1.005 Ua PH 8 Ua Color yellow Ua Appera cloudy Ua WBC neg Ua Protein 30+ Ua Glucose neg Ua Ketones neg Ua Bilirubin small Ua Urobilinogen neg Ua Nitrite neg Ua Occult Blood non hemo trace Urine Culture And 02/15/2016 Urine Culture SEE RESULT BELOW 72 Sensitivities Laboratory test finding 11/05/2015 Gardnerella/Yeast: SEE RESULT BELOW 73 Vaginal Dna Trichomonas Vaginalis Rna Negative Negative 74 GC/Chlamydia Amplified Rna 11/05/2015 Chlamydia trachomatis Rna Negative Negative Neisseria gonorrhoeae (GC) Rna Negative Negative HIV 1/2 AB Evaluation 11/05/2015 HIV 1 2 Antibody Nonreactive Nonreactive 75 Ua Routine 09/18/2015 Ua Specific [place] 1.010 Ua PH 5 Ua Color yellow Ua Appera clear Ua WBC postive Ua Protein neg Ua Glucose neg Ua Ketones neg Ua Bilirubin neg Ua Urobilinogen normal Ua Nitrite neg Ua Occult Blood trace Urinalysis Profile 09/18/2015 Urine Color Straw Urine Appearance Clear Urine Specific Mand[place] 1.005 Low 1.010-1.030 Urine pH 6.0 5-9 Urine Urobilinogen Negative Negative Urine Ketones Negative Negative Urine Protein Negative Negative Urine Leukocytes 1+ Negative Urine Blood 1+ Negative Urine Nitrite Negative Negative Urine Bilirubin Negative Negative Urine Glucose Negative Negative Urine White Blood Cell 2+(11-20/hpf) Absent Urine Red Blood Cell Trace(0-2/hpf) Absent Urine Bacteria 1+ Absent Urine Squamous Epithelial Cell Present Absent Ua And Culture 09/18/2015 Urine Culture And SEE RESULT BELOW 76 Sensitivity Sensitivities Laboratory test 08/23/2015 TSH (Thyroid Stim Horm) 0.46 ?IU/mL 0.34-5.60 finding CBC Auto Diff 08/23/2015 White Blood Count 7.5 10^3/uL 4.8-10.8 Red Blood Count 4.21 10^6/uL 4.0-5.4 Hemoglobin 12.6 g/dL 12.0-16.0 Hematocrit 39 % 35-47 Mean Corpuscular Volume 92 fL 80-97 Mean Corpuscular Hemoglobin 30 pg 27-31 Mean Corpuscular HGB Conc 33 g/dL 31-36 Red Cell Distribution Width 13 % 10.5-15 Platelet Count 216 10^3/uL 150-450 Mean Platelet Volume 8 um3 7.4-10.4 Abs Neutrophils 4.7 10^3/uL 1.5-7.7 Abs Lymphocytes 2.1 10^3/uL 1.0-4.8 Abs Monocytes 0.5 10^3/uL 0-0.8 Abs Eosinophils 0.1 10^3/uL 0-0.6 Abs Basophils 0 10^3/uL 0-0.2 Abs Nucleated RBC 0 10^3/uL Granulocyte % 62.8 % 38-83 Lymphocyte % 28.0 % 25-47 Monocyte % 7.1 % 1-9 Eosinophil % 1.6 % 0-6 Basophil % 0.5 % 0-2 Nucleated Red Blood Cells % 0 Basic Metabolic Panel 08/23/2015 Sodium 139 mmol/L 133-145 Potassium 3.9 mmol/L 3.5-5.0 Chloride 104 mmol/L 101-111 Co2 Carbon Dioxide 29 mmol/L 22-32 Anion Gap 6 mmol/L 2-11 Glucose 91 mg/dL 70-100 Blood Urea Nitrogen 10 mg/dL 6-24 Creatinine 0.58 mg/dL 0.51-0.95 BUN/Creatinine Ratio 17.2 8-20 Calcium 9.3 mg/dL 8.6-10.3 Egfr Non- 122.1 >60 Egfr 157.0 >60 77 1 [id number] 2 SEE RESULT BELOW Name: GEE MALHOTRA : [address]: Nunu Bolaños MD Acct: [id number] Unit: [id number] AGE: 32 Location: [facility] Re06/08/18 SEX: F Status: MADELAINE GALLARDO SPEC: [id number] ELDON: 06/08/180856 [facility] DR: Nunu Bolaños MD REQ: [id number] RECD: 06/08/18 STATUS: SOUT _ ORDERED: LEVEL 3 COMMENTS: [id number] FINAL DIAGNOSIS Wrist, right, excision: -- Ganglion cyst. PRE-OPERATIVE DIAGNOSIS Persistent right wrist pain after DeQuervains release and ganglion cyst GROSS DESCRIPTION The specimen is received in formalin labeled, Ganglion Cyst Right Wrist, and consists of two vasquez-pink rubbery irregular soft tissue fragments measuring 0.4 x 0.3 x 0.1 cm and 0.7 by up to 0.7 x 0.2 cm which are submitted entirely in one cassette. Signed by and Reported on: Radha Perez MD 06/09/18 1020 END OF REPORT DEPARTMENT OF PATHOLOGY, [address] [place] [address] Tristin Storm M.D. Director [facility] # [id number] 3 Please check labs this week 4 Please check labs this week 5 Please check labs this week 6 Please check labs this week 7 Please check labs this week 8 Acute inflammation: >10.00 9 Please check labs this week 10 ADDITIONAL INFORMATION This test was developed and its performance characteristics determined by [facility] in a manner consistent with CLIA requirements. This test has not been cleared or approved by the U.S. Food and Drug Administration. Test Performed by: [address] [address] 11 Test Performed by: [place] [address] 12 Negative for cANCA and pANCA patterns by immunofluorescence. ADDITIONAL INFORMATION This test was developed and its performance characteristics determined by [facility] in a manner consistent with CLIA requirements. This test has not been cleared or approved by the U.S. Food and Drug Administration. Test Performed by: [facility] [place] [address] 13 Please check labs this week 14 Interpretation: Weak Positive (15.0-39.9) REFERENCE VALUE <15.0 (Negative) 15 REFERENCE VALUE <15.0 (Negative) Test Performed by: [place] [address] 16 Test Performed by: [facility] [place] [address] 17 Test Performed by: [place] [address] 18 REFERENCE VALUE <30.0 (Negative) Test Performed by: [place] [address] 19 Please check labs this week 20 ADDITIONAL INFORMATION This test was developed and its performance characteristics determined by [facility] in a manner consistent with CLIA requirements. This test has not been cleared or approved by the U.S. Food and Drug Administration. Test Performed by: [facility] - [facility] [address] [place] [address] 21 Normal Range 180 to 914 Indeterminate Range 145 to 180 Deficient Range <145 22 Please check labs this week Test Performed by: [facility] - [facility] [address] [place] [address] 24 REFERENCE VALUE <1.0 (Negative) 25 REFERENCE VALUE <1.0 (Negative) 26 REFERENCE VALUE <1.0 (Negative) 27 REFERENCE VALUE <1.0 (Negative) 28 REFERENCE VALUE <1.0 (Negative) 29 REFERENCE VALUE <1.0 (Negative) Test Performed by: [facility] - [facility] [address] [place] [address] 30 [id number] 31 SEE RESULT BELOW Name: GEE MALHOTRA : [address]: Loretta Turpin DO Acct: [id number] Unit: [id number] AGE: 32 Location: [facility] Re12/16/17 SEX: F Status: DEP REF SPEC: [id number] ELDON: 12/16/17-[address]: Loretta Turpin DO REQ: [id number] RECD: 12/16/17 STATUS: LYNETTE ANTON DR: Ze La [employer] _ ORDERED: LEVEL 4/4 COMMENTS: [id number] FINAL DIAGNOSIS 1. Small bowel, terminal ileum, biopsy: -- Small bowel mucosa with normal villous architecture and no significant pathologic abnormality. 2. Colon, right, biopsy: -- Large intestinal mucosa with no significant pathologic abnormality. -- No evidence of microscopic/lymphocytic colitis, collagenous colitis or other chronic inflammatory bowel process identified. 3. Colon, left, biopsy: -- Large intestinal mucosa with no significant pathologic abnormality. -- No evidence of microscopic/lymphocytic colitis, collagenous colitis or other chronic inflammatory bowel process identified. 4. Colon, rectum, biopsy: -- Large intestinal mucosa mild architectural disorder and lamina propria muciphages compatible with repair. See comment. -- No active inflammation or dysplasia identified. Comment: The findings in part 4 are indicative of a prior and largely resolved insults. No evidence of an active inflammatory bowel process identified. CLINICAL HISTORY 32 year old female with diarrhea and fatigue CONTINUED ON NEXT PAGE * ML=Testing performed at Main Lab DEPARTMENT OF PATHOLOGY, [address] [place] [address] Tristin Storm M.D. Director [facility] # [id number] RUN DATE: 12/24/17 [facility] LAB LIVE PAGE 2 Patient: GEE MALHOTRA [id number] (Continued) POST-OPERATIVE DIAGNOSIS (Continued) POST-OPERATIVE DIAGNOSIS Normal terminal ileum with biopsy; normal colon with biopsy; small non- bleeding internal hemorrhoids; good prep. Conclusions/Plan: Follow-up pathology; follow-up appointment with Janey CURTIS DESCRIPTION 1. The specimen is received in formalin labeled, Biopsy Terminal Ileum, and consists of a 0.7 by up to 0.5 x 0.2 cm aggregate of translucent vasquez-white irregular to polypoid soft tissue fragments, which is entirely submitted in one cassette. 2. The specimen is received in formalin labeled, Biopsy Right Colon, and consists of a 0.7 x 0.2 by up to 0.2 cm vasquez-white irregular to polypoid soft tissue fragment, which is entirely submitted in one cassette. 3. The specimen is received in formalin labeled, Biopsy Left Colon, and consists of a 0.7 x 0.2 x 0.1 cm aggregate of vasquez-white irregular to polypoid soft tissue fragments, which are entirely submitted in one cassette. 4. The specimen is received in formalin labeled, Biopsy Rectum, and consists of a 0.7 by up to 0.3 x 0.2 cm patchy vasquez-brown irregular to polypoid soft tissue fragment, which is entirely submitted in one cassette. Signed (signature on file) Tristin Sudilovsky, MD 1248 END OF REPORT * ML=Testing performed at Main Lab DEPARTMENT OF PATHOLOGY, [address] [place] [address] Tristin Storm M.D. Director [facility] # [id number] 32 REFERENCE VALUE <1:80 (Negative) 33 Dense Fine Speckled Test Performed by: [place] [address] 34 SOURCE: STOOL CYCLOSPORA STAIN FINAL Negative. Test Performed by: [place] [address] 35 SEE RESULT BELOW Name: GEE MALHOTRA : [address]: David Jimenez MD Acct: [id number] Unit: [id number] AGE: 31 Location: [facility] Re10/09/17 SEX: F Status: REG REF SPEC: [id number] ELDON: 10/09/17-999 [facility] DR: David Jimenez MD REQ: [id number] RECD: 10/09/17 STATUS: COMP _ SOURCE: STOOL SPDESC: ORDERED: Stool Culture, Fecal Lactoferr, O P: Giar/Crypt Procedure Result Reported Site Stool Culture Final 10/11/17- 0846 ML Result No enteric pathogens isolated Testing for Salmonella, Shigella, Aeromonas, Plesiomonas, Yersinia and Campylobacter are included in a Stool Culture. Vibrio spp not routinely tested for in a stool culture. If testing is desired, please request specifically when placing test order. Sensitivities not routinely performed on stool isolates, as antibiotics may prolong the carriage rate of bacteria. Please contact the microbiology lab if sensitivities are required. Stool Specimen Description Final 10/09/17- 1421 ML Stool Color Brown Stool Form Nonformed Stool Consistency Watery Shiga Toxin 1 2 Final 10/12/17- 1314 ML Organism 1 Negative Shiga Toxin 1 2 Immunochromatographic Assay CONTINUED ON NEXT PAGE * ML=Testing performed at Main Lab DEPARTMENT OF PATHOLOGY, [address] [place] [address] Tristin Storm M.D. Director [facility] # [id number] Patient: GEE MALHOTRA [id number] (Continued) Specimen: [id number] Collected: 10/09/17-999 Received: 10/09/17-1257 (Continued) Procedure Result Reported Site Shiga Toxin 1 2 Final (continued) 10/12/17- 1314 Fecal Lactoferrin (Stool WBC) Final 10/09/17- 1542 ML Fecal Lactoferrin Negative by Immunoassay TEST LIMITATIONS: Assay detects elevated levels of lactoferrin released from fecal leukocytes as a marker of intestinal inflammation. The test may not be appropriate in immunocompromised persons. Fecal samples from breast fed infants should not be used with this assay. O P: Giardia/Cryptospor Screen Final 10/12/17- 1031 ML Organism 1 Neg Cryptosporidium/Giardia Giardia and cryptosporidium antigen testing performed by enzyme immunoassay. If patient is immunocompromised or has traveled to or is from a developing country, a full ova and parasite exam with microscopic (OPMIC) is recommended. All samples will be held one month in case full ova and parasite testing is requested. Contact the Microbiology Department at [phone]. TEST LIMITATIONS: As with all diagnostic procedures, the results obtained should be used in conjunction with other clinical information available the physician, including confirmation by another method. Negative results can occur in samples containing antigen below lower limits of detection of the assay. One negative specimen does not rule out the possibility of a parasitic infection. To improve detection it is recommended that three specimens be collected on separate days over a period of not more than seven days. The use of colonic washes, aspirates or other diluted sample types has not been established and could affect the performance of the assay. Stool samples contaminated with an CONTINUED ON NEXT PAGE * ML=Testing performed at Main Lab DEPARTMENT OF PATHOLOGY, [address] [place] [address] Tristin Storm M.D. Director [facility] # [id number] Patient: GEE MALHOTRA [id number] (Continued) Specimen: [id number] Collected: 10/09/17-1000 Received: 10/09/17-1257 (Continued) Procedure Result Reported Site O P: Giardia/Cryptospor Screen Final (continued) 10/12/17- 103 oily or particulate base (eg. Barium, mineral oil etc.) could interfere with the test and are not recommended. * ML - MAIN LAB ([facility]) . END OF REPORT * ML=Testing performed at Main Lab DEPARTMENT OF PATHOLOGY, [address] [place] [address] Tristin Storm M.D. Director [facility] # [id number] 36 RESULT: Results suggest past infection. ADDITIONAL INFORMATION In most populations, at least 90% of the adult population will have been infected with EBV sometime in the past and therefore, will be positive for anti-VCA/IgG and anti- EBNA. Antibodies to EBNA develop 6-8 weeks after primary infection and remain present for life. Presence of VCA/ IgM antibodies indicates recent primary infection with EBV. Test Performed by: [facility] [place] [address] 37 Test Performed by: [place] [address] 38 Acute inflammation: >10.00 39 Test Result Flag Unit RefValue Strongyloides Ab, IgG, S Negative Negative No detectable levels of IgG antibodies to Strongyloides. Repeat testing in 1-2 weeks if clinically indicated. Test Performed by: [facility] [place] [address] 40 REFERENCE VALUE <4.0 (Negative) Test Performed by: [address] [address] 41 Negative serology. Celiac disease unlikely. However, approximately 10% of patients with celiac disease are seronegative. Also, patients who are already adhering to a gluten-free diet may be seronegative. If celiac disease is highly clinically suspected, consider HLA-DQ typing. Test Performed by: [address] [address] 42 AM 8.7-22.4 PM <10 43 ADDITIONAL INFORMATION This test was developed and its performance characteristics determined by [facility] in a manner consistent with CLIA requirements. This test has not been cleared or approved by the U.S. Food and Drug Administration. 44 ADDITIONAL INFORMATION This test was developed and its performance characteristics determined by [facility] in a manner consistent with CLIA requirements. This test has not been cleared or approved by the U.S. Food and Drug Administration. 45 ADDITIONAL INFORMATION This test was developed and its performance characteristics determined by [facility] in a manner consistent with CLIA requirements. This test has not been cleared or approved by the U.S. Food and Drug Administration. Test Performed by: [facility] [place] [address] 46 Test Performed by: [facility] [place] [address] 47 Serologic response to B. burgdorferi infection is not detected, but cannot rule out early infection during which low or undetectable antibody levels to B. burgdorferi may be present. If clinically indicated, a new serum specimen should be submitted in 7-14 days. Test Performed by: [facility] [address] [place] [address] 48 Interpretation: Weak Positive (1.1-2.9) REFERENCE VALUE <=1.0 (Negative) 49 REFERENCE VALUE <20.0 (Negative) 50 Tests for antibodies to dsDNA and DEVI antigens are not performed automatically unless the DARIAN result is > or= 3.0 U. Studies performed at [facility] indicate that positive DARIAN results <3.0 U are rarely accompanied by positive second order tests. Test Performed by: [facility] - [place] [id number] 51 Acute inflammation: >10.00 52 Because ethnic data is not always readily available, this report includes an eGFR for both -Americans and non- Americans. The National Kidney Disease Education Program (NKDEP) does not endorse the use of the MDRD equation for patients that are not between the ages of 18 and 70, are , have extremes of body size, muscle mass, or nutritional status, or are non- or non-. According to the National Kidney Foundation, irrespective of diagnosis, the stage of the disease is based on the level of kidney function: Stage Description GFR(mL/min/1.73 m(2)) 1 Kidney damage with normal or decreased GFR 90 2 Kidney damage with mild decrease in GFR 60-89 3 Moderate decrease in GFR 30-59 4 Severe decrease in GFR 15-29 5 Kidney failure <15 (or dialysis) 53 Acute inflammation: >10.00 54 Because ethnic data is not always readily available, this report includes an eGFR for both -Americans and non- Americans. The National Kidney Disease Education Program (NKDEP) does not endorse the use of the MDRD equation for patients that are not between the ages of 18 and 70, are , have extremes of body size, muscle mass, or nutritional status, or are non- or non-. According to the National Kidney Foundation, irrespective of diagnosis, the stage of the disease is based on the level of kidney function: Stage Description GFR(mL/min/1.73 m(2)) 1 Kidney damage with normal or decreased GFR 90 2 Kidney damage with mild decrease in GFR 60-89 3 Moderate decrease in GFR 30-59 4 Severe decrease in GFR 15-29 5 Kidney failure <15 (or dialysis) 55 Because ethnic data is not always readily available, this report includes an eGFR for both -Americans and non- Americans. The National Kidney Disease Education Program (NKDEP) does not endorse the use of the MDRD equation for patients that are not between the ages of 18 and 70, are , have extremes of body size, muscle mass, or nutritional status, or are non- or non-. According to the National Kidney Foundation, irrespective of diagnosis, the stage of the disease is based on the level of kidney function: Stage Description GFR(mL/min/1.73 m(2)) 1 Kidney damage with normal or decreased GFR 90 2 Kidney damage with mild decrease in GFR 60-89 3 Moderate decrease in GFR 30-59 4 Severe decrease in GFR 15-29 5 Kidney failure <15 (or dialysis) 56 Serologic response to B. burgdorferi infection is not detected, but cannot rule out early infection during which low or undetectable antibody levels to B. burgdorferi may be present. If clinically indicated, a new serum specimen should be submitted in 7-14 days. Test Performed by: [facility] - [address] [address] 57 Because ethnic data is not always readily available, this report includes an eGFR for both -Americans and non- Americans. The National Kidney Disease Education Program (NKDEP) does not endorse the use of the MDRD equation for patients that are not between the ages of 18 and 70, are , have extremes of body size, muscle mass, or nutritional status, or are non- or non-. According to the National Kidney Foundation, irrespective of diagnosis, the stage of the disease is based on the level of kidney function: Stage Description GFR(mL/min/1.73 m(2)) 1 Kidney damage with normal or decreased GFR 90 2 Kidney damage with mild decrease in GFR 60-89 3 Moderate decrease in GFR 30-59 4 Severe decrease in GFR 15-29 5 Kidney failure <15 (or dialysis) 58 Acute inflammation: >10.00 59 <5.0 Negative 5.0 - 25.0 Indeterminate (Repeat testing recommended after 72 hours) >25.0 Positive Perimenopausal women can display HCG levels of up to 20 mIU/mL 60 [facility] Severe Sepsis and Septic Shock Management Bundle Measure requires all lactic acids initially measuring >2.0 mmol/L be repeated. 61 Would you like an EBV if Monospot is Negative?: N 62 [employer]: [id number] 63 SEE RESULT BELOW Name: GEE MALHOTRA : [address]: Ze La NP Acct: [id number] Unit: [id number] AGE: 31 Location: [facility] Re02/06/17 SEX: F Status: REG REF SPEC: [id number] ELDON: 02/06/[address]: Ze La NP REQ: [id number] RECD: 02/06/17 STATUS: COMP _ SOURCE: NASCALLIEARYN SPDESC: ORDERED: Flu A B Request COMMENTS: [id number] Procedure Result Reported Site Rapid Influenza A B Request Final 02/06/172015 ML Specimen received for Influenza A/B Molecular testing * ML - MAIN LAB ([facility]) . END OF REPORT * ML=Testing performed at Main Lab DEPARTMENT OF PATHOLOGY, [address] [place] [address] Tristin Storm M.D. Director [facility] # [id number] 64 SEE RESULT BELOW Name: GEE MALHOTRA : [address]: Ze La NP Acct: [id number] Unit: [id number] AGE: 31 Location: [facility] Re02/06/17 SEX: F Status: REG REF SPEC: [id number] ELDON: 02/06/[address]: Ze La NP REQ: [id number] RECD: 02/06/17 STATUS: COMP _ SOURCE: THROAT SPDESC: ORDERED: Throat Culture COMMENTS: [id number] Procedure Result Reported Site Throat Culture Final 02/08/17- 1045 ML Organism 1 NORMAL JESSI Quantity 2+ Throat cultures are clinically indicated to detect the presence of group A strep, arcanobacterium and yeast. In certain cases, predominating organisms will be reported. * ML - MAIN LAB ([facility]) . END OF REPORT * ML=Testing performed at Main Lab DEPARTMENT OF PATHOLOGY, [address] [place] [address] Tristin Storm M.D. Director [facility] # [id number] 65 Because ethnic data is not always readily available, this report includes an eGFR for both -Americans and non- Americans. The National Kidney Disease Education Program (NKDEP) does not endorse the use of the MDRD equation for patients that are not between the ages of 18 and 70, are , have extremes of body size, muscle mass, or nutritional status, or are non- or non-. According to the National Kidney Foundation, irrespective of diagnosis, the stage of the disease is based on the level of kidney function: Stage Description GFR(mL/min/1.73 m(2)) 1 Kidney damage with normal or decreased GFR 90 2 Kidney damage with mild decrease in GFR 60-89 3 Moderate decrease in GFR 30-59 4 Severe decrease in GFR 15-29 5 Kidney failure <15 (or dialysis) 66 Acute inflammation: >10.00 67 RESULT: No apparent monoclonal protein on serum electrophoresis. Test Performed by: [address] [address] 68 It is recognized that currently available assays for the detection of antibodies to HIV-1 and/or HIV-2 may not detect all infected individuals. HIV antibodies may be undetectable in some stages of the infection and in some clinical conditions. The performance of this assay has not been established for populations of infants or children. Assayed by Chemiluminescence Microparticle Immunoassay on the Siemens Advia Centaur CP. Values obtained with different methods or kits cannot be used interchangeably.The diagnostic specificity of the ADVIA Centaur 1/O/2 Enhanced assay in the low risk population was 99.90% (6052/6058) with a 95% confidence interval of 99.78 to 99.96%. 69 No interferon-gamma response to M. tuberculosis antigens was detected. Infection with M. tuberculosis is unlikely. A negative result alone does not exclude infection with M. tuberculosis. For detailed information regarding test interpretation see: [email or web address]/test-catalog/ Clinical+and+[email or web address] 70 Test Performed by: [facility] - [address] [address] 71 Normal Range 180 to 914 Indeterminate Range 145 to 180 Deficient Range <145 72 SEE RESULT BELOW Name: GEE MALHOTRA : [address]: Ze La NP Acct: [id number] Unit: [id number] AGE: 30 Location: [facility] Re02/15/16 SEX: F Status: REG REF SPEC: [id number] ELDON: 02/15/16-[address]: Ze La NP REQ: [id number] RECD: 02/18/16 STATUS: COMP _ SOURCE: URINE SPDESC: ORDERED: Urine Culture Procedure Result Reported Site Urine Culture Final 02/19/16- 1201 ML No Growth (<1,000 CFU/mL) * ML - MAIN LAB ([facility]) . END OF REPORT * ML=Testing performed at Main Lab DEPARTMENT OF PATHOLOGY, [address] [place] [address] Tristin Storm M.D. Director [facility] # [id number] 73 SEE RESULT BELOW Name: GEE MALHOTRA : [address]: Alex Pham NP Acct: [id number] Unit: [id number] AGE: 29 Location: [facility] Re11/05/15 SEX: F Status: REG REF SPEC: [id number] ELDON: 11/05/15-[address]: Alex Pham NP REQ: [id number] RECD: 11/05/15 STATUS: COMP _ SOURCE: VAGINAL SPDESC: ORDERED: Eber,Yeast DNA Procedure Result Reported Site Gardnerella/Yeast: Vaginal DNA Final 11/06/15- 1131 ML Organism 1 Negative Gardnerella Organism 2 POSITIVE REBECCA The presence of G. vaginalis, although suggestive, is not diagnostic for bacterial vaginosis. Results should be interpreted in conjuction with other clinical and laboratory data available. Women with vaginal discharge should be evaluated for risk factors of cervicitis and pelvic inflammatory disease, toxic shock syndrome (S.aureus), and if present, evaluated for organisms not included in this assay such as N. gonorrhoeae, C. trachomatis, Mobiluncus, Mycoplasma and/or Prevotella. Mixed infections may occur. The performance of this test on patient specimens collected during or immediately after antimicrobial therapy is unknown. The presence or absence of Rebecca species, or G. vaginalis cannot be used as a test for therapeutic success or failure. * ML - MAIN LAB ([facility]) . END OF REPORT * ML=Testing performed at Main Lab DEPARTMENT OF PATHOLOGY, [address] [place] [address] Tristin Storm M.D. Director [facility] # [id number] 74 GC/Chlamydia Source?: Endocervical Trichomonas Source: Endocervical 75 It is recognized that currently available assays for the detection of antibodies to HIV-1 and/or HIV-2 may not detect all infected individuals. HIV antibodies may be undetectable in some stages of the infection and in some clinical conditions. The performance of this assay has not been established for populations of infants or children. Assayed by Chemiluminescence Microparticle Immunoassay on the Siemens Advia Centaur CP. Values obtained with different methods or kits cannot be used interchangeably.The diagnostic specificity of the ADVIA Centaur 1/O/2 Enhanced assay in the low risk population was 99.90% (6052/6058) with a 95% confidence interval of 99.78 to 99.96%. 76 SEE RESULT BELOW Name: GEE MALHOTRA : [address]: Ze La NP Acct: [id number] Unit: [id number] AGE: 29 Location: [facility] Re09/18/15 SEX: F Status: REG REF SPEC: [id number] ELDON: 09/18/15-[address]: Ze La NP REQ: [id number] RECD: 09/18/15 STATUS: COMP _ SOURCE: URINE SPDESC: ORDERED: Urine Culture Procedure Result Verified Site Urine Culture Final 09/20/15- 0854 ML Organism 1 ESCHERICHIA COLI [place] Count 50-75,000 (Many) CFU/ML Organism 2 NORMAL JESSI [place] Count 1-10,000 (Few) CFU/ML 1. ESCHERICHIA COLI M.I.C. RX --------- ------ Ampicillin 4 S Cefazolin <=4 S Cefepime <=1 S Ceftriaxone <=1 S Ciprofloxacin <=0.25 S Gentamicin <=1 S Levofloxacin <=0.12 S Meropenem <=0.25 S Nitrofurantoin <=16 S Tetracycline <=1 S Pipercillin/Tazobactam <=4 S Trimethoprim/Sulfamethoxazole <=20 S Amoxicillin/Clavulanic Acid 4 S Aztreonam <=1 S Contact the Microbiology Department for any additional antibiotic reporting. * ML - MAIN LAB ([facility]) . END OF REPORT * ML=Testing performed at Main Lab DEPARTMENT OF PATHOLOGY, [address] [place] [address] Tristin Storm M.D. Director [facility] # [id number] 77 Because ethnic data is not always readily available, this report includes an eGFR for both -Americans and non- Americans. The National Kidney Disease Education Program (NKDEP) does not endorse the use of the MDRD equation for patients that are not between the ages of 18 and 70, are , have extremes of body size, muscle mass, or nutritional status, or are non- or non-. According to the National Kidney Foundation, irrespective of diagnosis, the stage of the disease is based on the level of kidney function: Stage Description GFR(mL/min/1.73 m(2)) 1 Kidney damage with normal or decreased GFR 90 2 Kidney damage with mild decrease in GFR 60-89 3 Moderate decrease in GFR 30-59 4 Severe decrease in GFR 15-29 5 Kidney failure <15 (or dialysis) Procedures Date CPT Code Description Status 06/08/2018 29239 Excision Ganglion Wrist/ Dorsal Or Volar; Primary Completed 06/08/2018 Dequervains-Tendon Sheath Incision/Extensor Completed Sheath,Wrist 12/16/2017 44584 Colonoscopy Flexible Diagnostic Completed 12/16/2017 Colonoscopy Completed Encounters Type Date Location Provider CPT E/M Dx Office Visit 05/13/2018 [facility] Nunu Bolaños, 17271 M67.431 9:00a Of Carlos Li M65.4 Office Visit 04/19/2018 2:40p [facility] Internal Medicine Alba Barrera N.PCharles [address]2023 B37.3 - [place] H61.22 Office Visit 04/07/2018 8:45a [facility] Shania Moreno, 60014 M25.531 Of C.M.Pia RPA-C D48.1 M67.431 Office Visit 03/17/2018 2:15p [facility] Of Shania Moreno, 67504 M25.531 C.M.A. RPA-C Office Visit 02/03/2018 8:00a Rheumatology Services Kirit Sahu 15152 R76.0 Of [facility] Jen Office Visit 01/11/2018 3:40p [facility] [place] [address] J01.90 - [place] Office Visit 12/21/2017 10:00a Rheumatology Services Kirit Sahu 89350 R76.0 Of [facility] Jen M35.01 R53.83 R51 M79.1 Office Visit 11/09/2017 4:00p [facility] Catherine Jimenez, 45273 R53.81 Infectious Diseases MKarissa M25.562 Z23 R19.7 Office Visit 10/08/2017 2:00p [place] Jerrod Jimenez, 96966 M79.1 Infectious Diseases MKarissa R07.0 R53.83 R19.7 Office Visit 10/05/2017 2:20p [facility] [place] [address] M79.1 [place] M25.50 D50.8 R53.83 Office Visit 08/25/2017 8:40a [facility] [place] [address] R07.0 [place] Z23 R53.83 Office Visit 07/31/2017 4:20p [facility] Internal Medicine Alba Barrera, N.P. 71370 R13.19 - [place] Office Visit 07/17/2017 4:00p [facility] Internal Medicine Moriah Olivas 30559 R50.9 - Moris Li G47.33 Office Visit 05/12/2017 9:40a [facility] [place] [address] R53.83 [place] B37.3 Office Visit 04/09/2017 3:40p [facility] [place] [address] B27.90 [place] N92.6 Office Visit 02/25/2017 3:40p [facility] [place] [address] B27.90 [place] Office Visit 02/05/2017 8:40a [facility] [place] [address] R63.4 [place] R53.83 J02.9 Office Visit 11/19/2016 4:00p [facility] [place] [address] J06.9 - [place] Office Visit 07/22/2016 3:20p [facility] Internal Medicine Alba Barrera, N.P. 01120 J01.00 - [place] J30.81 Office Visit 02/19/2016 4:00p [facility] Internal Medicine Erin Cote M.D. 96782 K64.9 - [place] Office Visit 02/15/2016 2:40p [facility] [place] [address] R82.90 - [place] B37.3 Office Visit 12/07/2015 2:40p [facility] [place] [address] R07.9 [place] Office Visit 11/05/2015 2:40p [facility] [place] [address] Office Visit 10/19/2015 2:40p [facility] [place] [address] H92.01 [place] Office Visit 09/18/2015 4:00p [facility] [place] [address] R39.15 [place] N39.0 F41.9 Office Visit 08/23/2015 1:00p [facility] [place] [address] F41.9 Moris Plan of Care Future Appointment(s):07/08/2018 9:15 am - Nunu Bolaños M.D. at [facility]06/17/2018 - Shania Moreno [facility]-CM65.4 Radial styloid tenosynovitis [de Quervain]Follow up:Follow up: 3 [id number] Ganglion, right wrist
[2018-06-19 16:21] VITALS: BP 123/64
--- NOTE | 2018-06-19 16:58 | UC ---
Throat Pain/Nasal Azael HPI - HPI Summary HPI Summary: started feeling swelling in throat this am, no diff swallowing or breathing - History of Current Complaint Chief Complaint: UCGeneralIllness Stated Complaint: SWOLLEN THROAT Time Seen by Provider: 06/19/18 16:13 Hx Obtained From: Patient Hx Last Menstrual Period: May 30, 2018 ?: No Onset/Duration: Sudden Onset Severity: Mild Pain Intensity: 0 Associated Signs & Symptoms: Positive: Negative Related History: Seasonal Allergies - Epiglottits Risk Factors Epiglottis Risk Factors: Negative - Allergies/Home Medications Allergies/Adverse Reactions: Allergies Allergy/AdvReac Type Severity Reaction Status Date / Time amantadine AdvReac Altered Verified 06/08/18 07:36 Mental Status phenazopyridine AdvReac Altered Verified 06/08/18 07:36 [From Pyridium] Mental Status PMH/Surg Hx/FS Hx/Imm Hx Previously Healthy: Yes Psychological History: Depression - Surgical History Surgical History: Yes Surgery Procedure, Year, and Place: 06/2017 RIGHT WRIST TENDONITIS REPAIR. 2017 right wrist repair - Family History Known Family History: Positive: Unknown - DUE TO ALZHEIMERS IN MOTHER, Hypertension - Social History Occupation: Employed Full-time Lives: With Family Alcohol Use: Weekly Alcohol Amount: 3 drinks per week Substance Use Type: None Smoking Status (MU): Never Smoked Tobacco Have You Smoked in the Last Year: No Review of Systems Constitutional: Negative ENT: Other - swelling in throat Respiratory: Negative Cardiovascular: Negative Neurological: Negative Psychological: Negative Is Patient Immunocompromised?: No All Other Systems Reviewed And Are Negative: Yes Physical Exam Triage Information Reviewed: Yes Appearance: Well-Appearing, No Pain Distress, Well-Nourished Vital Signs: Initial Vital Signs Temp 99.0 F 06/19/18 16:13 Pulse 78 06/19/18 16:13 Resp 16 06/19/18 16:13 BP 123/64 06/19/18 16:13 Pulse Ox 100 06/19/18 16:13 Vital Signs Reviewed: Yes Eyes: Positive: Conjunctiva Clear ENT Exam: Normal ENT: Positive: Pharynx normal, Tonsillar exudate - on L side only: food lith with mild irritation Respiratory Exam: Normal Cardiovascular Exam: Normal Neurological Exam: Normal Psychological Exam: Normal Skin Exam: Normal Throat Pain/Nasal Course/Dx - Differential Dx/Diagnosis Differential Diagnosis/HQI/PQRI: Pharyngitis, Tonsillitis, URI Provider Diagnoses: food lith Discharge - Sign-Out/Discharge Documenting (check all that apply): Patient Departure - Discharge Plan Condition: Good Disposition: HOME Patient Education Materials: Tonsillitis (ED) Referrals: Moriah Olivas MD [Primary Care Provider] - 2 Days (If no better) Additional Instructions: drink plenty of fluids use ibuprofen for pain return if symptoms worsen - Billing Disposition and Condition Condition: GOOD Disposition: Home
== END 2018-06-19 17:00 | disposition home or self-care (01) ==
LOC: UCEAST 15:42
DX: R09.89 Other specified symptoms and signs involving the circulatory and respiratory systems (principal)
CPT/HCPCS: 87651; 99211; G0463

== ENCOUNTER 2018-11-04 08:53 | Emergency (ER) | payer BC, OTHER ==
[2018-11-04 09:04] VITALS: BP 115/78
--- NOTE | 2018-11-04 09:53 | UC ---
Throat Pain/Nasal Azael HPI - HPI Summary HPI Summary: 32-year-old woman comes to clinic today with a chief complaint of right eye crusting discharge. It's been going on the last couple of days. She's had upper respiratory tract infection symptoms for a little greater than a week. She has yellow rhinorrhea and right maxillary and frontal sinus pressure. She' s having a hard time getting some sputum up and she's tried Mucinex but that did not help. She cleans her eye off that helps with the crusting. - History of Current Complaint Chief Complaint: UCEye Stated Complaint: EYE ISSUE Time Seen by Provider: 11/04/18 09:43 Hx Last Menstrual Period: 10/25/18 Pain Intensity: 3 - Allergies/Home Medications Allergies/Adverse Reactions: Allergies Allergy/AdvReac Type Severity Reaction Status Date / Time amantadine AdvReac Altered Verified 11/04/18 09:04 Mental Status phenazopyridine AdvReac Altered Verified 11/04/18 09:04 [From Pyridium] Mental Status PMH/Surg Hx/FS Hx/Imm Hx Previously Healthy: Yes - Surgical History Surgical History: Yes Surgery Procedure, Year, and Place: 06/2017 RIGHT WRIST TENDONITIS REPAIR. 2017 right wrist repair - Family History Known Family History: Positive: Unknown - DUE TO ALZHEIMERS IN MOTHER, Hypertension - Social History Alcohol Use: Weekly Alcohol Amount: 3 drinks per week Substance Use Type: None Smoking Status (MU): Never Smoked Tobacco Have You Smoked in the Last Year: No Review of Systems All Other Systems Reviewed And Are Negative: Yes Constitutional: Positive: Negative Skin: Positive: Negative Eyes: Positive: Drainage, Eye Redness ENT: Positive: Sore Throat, Nasal Discharge, Sinus Congestion, Sinus Pain/ Tenderness Respiratory: Positive: Negative Cardiovascular: Positive: Negative Gastrointestinal: Positive: Negative Motor: Positive: Negative Neurovascular: Positive: Negative Musculoskeletal: Positive: Negative Neurological: Positive: Negative Psychological: Positive: Negative Is Patient Immunocompromised?: No Physical Exam Triage Information Reviewed: Yes Appearance: No Pain Distress, Well-Nourished, Ill-Appearing - MILD Vital Signs: Initial Vital Signs Temp 97.8 F 11/04/18 09:02 Pulse 100 11/04/18 09:02 Resp 20 11/04/18 09:02 BP 115/78 11/04/18 09:02 Pulse Ox 100 11/04/18 09:02 Eyes: Positive: Conjunctiva Inflamed, Discharge ENT: Positive: Pharyngeal erythema, Nasal congestion, Nasal drainage, TMs normal Neck exam: Normal Neck: Positive: Supple Respiratory: Positive: Lungs clear, Normal breath sounds, No respiratory distress Cardiovascular: Positive: RRR Musculoskeletal Exam: Normal Musculoskeletal: Positive: Strength Intact, ROM Intact Neurological Exam: Normal Neurological: Positive: Alert Psychological Exam: Normal Psychological: Positive: Age Appropriate Behavior Skin Exam: Normal Throat Pain/Nasal Course/Dx - Course Course Of Treatment: DISCUSSED VIRAL VERSES BACTERIAL INFECTION AND THE ROLE OF ANTIBIOTICS. THE PATIENT WISHES TO BE ON ANTIBIOTIC AT THIS TIME. - Differential Dx/Diagnosis Provider Diagnosis: Sinusitis, Conjunctivitis Discharge - Sign-Out/Discharge Documenting (check all that apply): Patient Departure All imaging exams completed and their final reports reviewed: No Studies - Discharge Plan Condition: Stable Disposition: HOME Prescriptions: Amoxicillin/Clavulanate TAB* [Augmentin TAB 875*] 875 mg PO BID #20 tab Fluconazole 150 MG TAB* [Diflucan 150 MG TAB*] 150 mg PO DAILY #2 tablet Tobramycin 0.3% OPHTH.KYLER* 1 drop BOTH EYES Q4H #1 btl Patient Education Materials: Sinusitis (ED), Conjunctivitis (ED) Referrals: Moriah Olivas MD [Primary Care Provider] - Additional Instructions: FOLLOW UP WITH YOUR DOCTOR IF NOT COMPLETELY IMPROVED. GET RECHECKED FOR ANY WORSENING OF YOUR CONDITION OR QUESTIONS OR CONCERNS. - Billing Disposition and Condition Condition: STABLE Disposition: Home
== END 2018-11-04 09:58 | disposition home or self-care (01) ==
LOC: UCEAST 08:53
DX: H10.9 Unspecified conjunctivitis (principal); J32.9 Chronic sinusitis, unspecified; Z88.8 Allergy status to other drugs, medicaments and biological substances
CPT/HCPCS: 99212; G0463

== ENCOUNTER 2018-12-10 10:42 | Day surgery (SDC) | payer BC ==
[~2018-12-10 10:42] MED LIST changes: -Buffered Lidocaine 0.9% SYRIN* 5 ML/SYR SYRINGE INTRADERM ONE; +Buffered Lidocaine 1% SYRIN* 1 ML/SYRINGE INTRADERM ONE; +Famotidine IV* 10 MG/ML 2 ML (20 mg) IV ONE; +Lactated Ringers 1000 ML Bag* 1,000 ML IV SCH; -Lidocaine 0.5%* 50 ML SDV ONE; -Propofol* 10 MG/ML 20 ML BTL IV PUSH ONE
[2018-12-10] MEDS ORDERED: Oxymetazoline 0.05% NASAL SPR* 15 ML BTL ONE ×2 (13:10→13:51)
[2018-12-10] MEDS ORDERED: Propofol* 10 MG/ML 20 ML BTL ONE (13:48)
[2018-12-10] MEDS ORDERED: Lidocaine 2% PF * 5 ML VIAL ONE (13:48)
[2018-12-10] MEDS ORDERED: Rocuronium* 10 MG/ML VIAL ONE (13:49)
[2018-12-10] MEDS ORDERED: fentaNYL* 50 MCG/ML 2 ML VIAL (100 MCG VIAL) ONE (13:49)
[2018-12-10] MEDS ORDERED: Midazolam* 1 MG/ML 2 ML VIAL (2 MG) ONE (13:49)
[2018-12-10] MEDS ORDERED: Lidocaine 4% TOPICAL* 50 ML TOP.SOLN ONE (13:51)
[2018-12-10] MEDS ORDERED: Bacitracin OINTMENT* 0.5% 0.5 oz TUBE ONE (13:51)
[2018-12-10] MEDS ORDERED: Lidocain 1% EPI 1:100,000 * 30 ML MDV ONE (13:51)
[2018-12-10] MEDS ORDERED: Sugammadex * 200 MG/2 ML VIAL IV PUSH ONE (13:55)
[2018-12-10] MEDS ORDERED: Ketorolac INJ* 30 MG/ML 1 ML VIAL IV PRN (14:00)
[2018-12-10] MEDS ORDERED: Acetaminophen TAB* 325 MG PO PRN (14:00)
[2018-12-10] MEDS ORDERED: Naloxone* 0.4 MG/ML 1 ML VIAL IV PRN (14:00)
[2018-12-10] MEDS ORDERED: fentaNYL* 50 MCG/ML 2 ML VIAL (100 MCG VIAL) IV PRN (14:00)
[2018-12-10] MEDS ORDERED: oxyCODONE TAB* 5 MG TAB PO PRN (14:00)
[2018-12-10] MEDS ORDERED: DiMENhydriNATE IV* 50 MG/ML VIAL IV PUSH PRN (14:00)
[2018-12-10] MEDS ORDERED: Ondansetron INJ* 2 MG/ML VIAL ONE (14:24)
[2018-12-10] MEDS ORDERED: Ketorolac INJ* 30 MG/ML 1 ML VIAL ONE ×2 (14:24→15:58)
[2018-12-10] MEDS ORDERED: Dexamethasone IV* 4 MG/ML 1 ML (4 MG) ONE (14:24)
[2018-12-10] MEDS ORDERED: Metoclopramide IV* 5 MG/ML 2 ML VIAL ONE (14:24)
[2018-12-10] MEDS ORDERED: Acetaminophen TAB* 325 MG ONE ×2 (16:00→16:02)
[2018-12-10 16:33] VITALS: BP 113/60
--- NOTE | 2018-12-10 20:21 | OP ---
DATE OF OPERATION: 12/10/18 - [facility] DATE OF : [birth year] SURGEON: Oscar Painting MD TEACHER DANCING: None. ANESTHESIA: General. PRE-OP DIAGNOSIS: Deviated nasal septum. POST-OP DIAGNOSIS: Deviated nasal septum. OPERATIVE PROCEDURE: Septoplasty. ESTIMATED BLOOD LOSS: Negligible. SPECIMEN: Septal cartilage and bone was discarded. DESCRIPTION OF THE PROCEDURE: This is a 32-year-old male with longstanding nasal airway obstruction refractory to medical management, who has severe septal deviation with near complete obstruction of the right nasal cavity. On 12/10/18, the patient was brought to the operating room. General anesthesia was induced and an oral endotracheal tube was placed. The patient was draped and a time-out was performed. The septum was infiltrated with 1% lidocaine with 1:100,000 epinephrine. The columella was infiltrated as well as both sides of the septal mucosa. Afrin and lidocaine-soaked pledgets were placed into each nasal cavity. Once adequate time had been allotted for vasoconstriction, the procedure was begun. A left hemitransfixion incision was made with a 15-blade. The mucoperichondrial flap was elevated on the left side. There was no damage to the septal mucosal flap during this part of the procedure. The cartilage was then transitioned with a 15 blade few millimeters posterior to the hemitransfixion incision. This allowed for access of the submucoperichondrial plane on the right side. Mucosa was elevated off of the right side of the septum. There was one tear posteriorly where there was a very hard short bony spur. With the septal cartilage and bone exposed, a portion of the quadrangular cartilage was removed with a Russ swivel knife. This was set aside and kept moist for future use. More posteriorly, a large bony septal spur was removed with a combination of through-cutting scissor and rongeur. Maxillary crest was significantly deviated into the right nasal cavity. This was taken down with a 4-mm osteotome. At this point, the initial piece of quadrangular cartilage that was removed was then morselized and used to reconstruct the septal wall. It was placed between the mucoperichondrial flaps, which were then sutured together with two quilting stitches of 4-0 gut. The hemitransfixion was then closed with 4-0 chromic. Septal splints were then placed in each side of the nose and sutured through the septum with 4-0 Prolene. The patient was then returned to the care of the anesthesiologist, extubated and delivered to the PACU in stable condition. [id number]/[facility] #: [id number] MTDD
== END 2018-12-10 16:52 | disposition home or self-care (01) ==
LOC: OR 10:42
PROVIDERS: ATTEND Otolaryngology
DX: J34.2 Deviated nasal septum (principal); F41.9 Anxiety disorder, unspecified
CPT/HCPCS: 81025; A9270-GY; J1100; J1885; J2250; J2405; J2704; J2765; J3010